=== PATIENT | male | born 1960 | race Caucasian/White ===

== ENCOUNTER → 2019-06-28 09:12 | Outpatient (CLI) | payer MEDICARE, SELFPAY ==
--- NOTE | 2019-06-28 | DI.CT.S_ITS ---
PROCEDURE: CT ABDOMEN PELVIS WO/W CON INDICATIONS: HEMATURIA TECHNIQUE: Optional 5 mm thick noncontrast images acquired from the diaphragm to the symphysis pubis. After the administration of intravenous contrast, 5 mm thick images acquired from the diaphragm to the symphysis pubis after a 10-minute delay. 2 mm thick coronal and sagittal reformats were then performed of the kidneys and ureters. For radiation dose reduction, the following was used: automated exposure control, adjustment of mA and/or kV according to patient size. COMPARISON: None. FINDINGS: Image quality: Excellent. Lung bases: There is mild dependent atelectasis bilaterally. Heart size is normal. Urinary system: The kidneys demonstrate no renal stones or hydronephrosis. There is mild nonspecific perinephric stranding bilaterally. There is symmetric bilateral renal enhancement. There is a small left renal cortical cyst measuring up to 1.1 cm. Scattered small hypodense foci are also demonstrated bilaterally which are too small to characterize but likely represent cysts. Renal calyces appear normal in morphology when filled with contrast without suspicious filling defects. Opacified portions of both ureters demonstrate normal caliber. Bladder wall thickness is normal. No calcified bladder stones. Other solid organs: Evaluation of the liver demonstrates no focal hepatic lesions. The gallbladder appears within normal limits without calcified gallstones. Biliary system is non-dilated. Pancreas enhances normally. No peripancreatic fat stranding or fluid collections. No pancreatic duct dilatation. The spleen is normal in size. No adrenal nodules. Peritoneum and bowel: Bowel loops demonstrate normal wall thickness and caliber. There is colonic diverticulosis without acute diverticulitis. Mild segmental wall thickening in the sigmoid colon may reflect a mild colitis. No free fluid or air. Nodes and vessels: No retroperitoneal or mesenteric adenopathy by size criteria. Aorta and inferior vena cava are normal in size. Abdominal wall: No ventral hernias. Pelvis: No pathologic free pelvic fluid. No inguinal hernias or adenopathy. Bones: No suspicious bony lesions. No vertebral body compression fractures. IMPRESSION: 1. No nephrolithiasis or suspicious filling defects within the renal collecting systems. 2. Small hypodense foci in the kidneys are too small to characterize but likely represent cysts. 3. Mild segmental wall thickening in the sigmoid colon suggestive of a mild infectious or inflammatory colitis. This includes sequelae of prior diverticulitis. There is colonic diverticulosis demonstrated without definite acute diverticulitis. Dictated by: Iglesia Lo M.D. on 06/28/2019 at 14:26 Approved by: Iglesia Lo M.D. on 06/28/2019 at 14:34
== END ==
PROVIDERS: PCP Nurse Practitioner Family; Visit Provider Nurse Practitioner Family
DX: R31.9 Hematuria, unspecified (principal); K57.90 Diverticulosis of intestine, part unspecified, without perforation or abscess without bleeding
CPT/HCPCS: 74178; Q9967

== ENCOUNTER → 2019-08-30 09:50 | Outpatient (CLI) | payer MEDICARE, SELFPAY ==
[2019-08-30 12:06] LABS: Prostate Specific Antigen 0.839 ng/mL (0.10-4.00)
== END ==
PROVIDERS: Family Provider Internal Medicine; PCP Nurse Practitioner Family; Visit Provider Student in an Organized Health Care Education/Training Program
DX: N28.1 Cyst of kidney, acquired (principal)
CPT/HCPCS: 36415; 84153